=== PATIENT | male | born 1975 | race African-American/Black ===

== ENCOUNTER 2018-02-03 19:33 | Inpatient (IN) | payer OTHER ==
[~2018-02-03] VITALS: Ht 180.3 cm; Wt 91.4 kg
[2018-02-03] MEDS ORDERED: SODIUM CHLORIDE 0.9% 1000ML 1,000 ML IV STA (19:47)
[2018-02-03 20:09] LABS: BASO % 0.7 %; BASO ABS # 0.05 K/uL (0-0.2); EOS % 1.2 %; EOS ABS # 0.08 K/uL (0-0.5); HEMATOCRIT 42.9 % (42-52); HEMOGLOBIN 15.1 g/dL (14.0-18.0); IG# 0.02 K/uL (0.00-0.02); LYMPH % 45.3 %; LYMPH ABS # 3.03 K/uL (1.2-3.4); MEAN CELL VOLUME 90.5 fL (80-100); MEAN CORPUSCULAR HEMOGLOBIN 31.9 pg (25-34); MEAN CORPUSCULAR HGB CONC 35.2 g/dl (32-36); MEAN PLATELET VOLUME 10.2 fL (7.4-10.4); MONO % 9.1 %; MONO ABS # 0.61 K/uL (0.11-0.59); NEUT % 43.4 %; PLATELET COUNT 270 K/uL (130-400); RED CELL DISTRIBUTION WIDTH CV 12.9 % (11.5-14.5); RED CELL DISTRIBUTION WIDTH SD 42.8 fL (36.4-46.3); WHITE BLOOD COUNT 6.69 K/uL (4.8-10.8)
[2018-02-03] MEDS ORDERED: PANTOprazole INJ 80 MG in DEXTROSE 5% 100ML IV ONE (20:15)
[2018-02-03 20:22] LABS: PTT PATIENT 28.9 SECONDS (21.0-31.0)
[2018-02-03 20:28] LABS: ALBUMIN 3.8 gm/dl (3.4-5.0); CALCIUM 8.7 mg/dl (8.5-10.1); CREATININE 1.08 mg/dl (0.60-1.40); POTASSIUM 3.5 mmol/L (3.5-5.1); TOTAL PROTEIN 7.8 gm/dl (6.4-8.2)
[2018-02-03] MEDS ORDERED: PANTOprazole INJ 40 MG in DEXTROSE 5% 100ML IV SCH (20:30)
--- NOTE | 2018-02-03 20:33 | DIAGNOSTIC IMAGING REPORT ---
CHEST ONE VIEW PORTABLE CLINICAL HISTORY: cp dyspnea COMPARISON STUDY: No previous studies for comparison. FINDINGS: The bones soft tissues and hemidiaphragms are normal. The cardiomediastinal silhouette is normal. The lungs are clear. The pulmonary vasculature is normal. IMPRESSION: Negative chest. The above report was generated using voice recognition software. It may contain grammatical, syntax or spelling errors. Electronically signed by: Lucio Brito M.D. 02/03/2018 8:31 PM Dictated Date/Time: 02/03/2018 8:31 PM
[2018-02-03] MEDS ORDERED: BUPR75TA20 PO (20:54)
[2018-02-03] MEDS ORDERED: CHOL100010 PO (20:54)
[2018-02-03] MEDS ORDERED: IBUP-103 PO (20:54)
[2018-02-03] MEDS ORDERED: GABAPENTIN 600 MG TAB PO SCH (21:30)
[2018-02-03] MEDS ORDERED: ONDANSETRON INJ 2 MG/ML 2 ML VIAL IV PRN (21:30)
[2018-02-03] MEDS ORDERED: LORAZEPAM 2 MG/ML 1 ML VIAL IV PRN (21:30)
[2018-02-03] MEDS ORDERED: ACETAMINOPHEN 325 MG TAB PO PRN (21:30)
--- NOTE | 2018-02-03 21:40 | EMERGENCY ROOM VISIT NOTE ---
History Report prepared by Emil: Cici Anglin Under the Supervision of: Rohini WeinsteinO. First contact with patient: 19:46 Chief Complaint: GI ASSESSMENT Stated Complaint: VOMITING BLOOD, BLOOD IN STOOL, ALCOHOLIC History of Present Illness The patient is a 42 year old male who presents to the Emergency Room with a GI assessment today. The patient states that he had blood in his stool today and that he has been vomiting up blood. He reports that there was blood in his stool earlier today and that the blood was bright red. He states that right after this bowel movement he vomited and states that there was speckled blood in that. He denies having any abdominal pain. The patient states that he drinks half of a fifth or a fifth of alcohol per day and reports that he has been doing this for 20 years. He states that he drank today. The patient denies having these symptoms in the past before. He denies a history of esophageal varices. The patient denies being on any blood thinners. Source of History: patient Onset: today Position: abdomen Quality: other (GI assessment) Associated Symptoms: + vomiting (with blood), No abdominal pain Note: additional symptom: blood in stool Review of Systems See HPI for pertinent positives & negatives. A total of 10 systems reviewed and were otherwise negative. Past Medical & Surgical Medical Problems: (1) GI bleed Social History Problems: (1) Alcohol abuse Family History Patient reports no known family medical history. Social History Smoking Status: Current Every Day Smoker Alcohol Use: heavy Current/Historical Medications Scheduled Bupropion (Wellbutrin), 1 TAB PO DAILY Cholecalciferol (Vitamin D), 1 TAB PO 2XWK Scheduled PRN Ibuprofen Tab (Advil), 600 MG PO Q6H PRN for Headache or Pain Allergies Coded Allergies: Penicillins (Verified Allergy, Severe, HIVES, 02/03/18) Physical Exam Vital Signs Date Time Temp Pulse Resp B/P (MAP) Pulse Ox O2 Delivery O2 Flow Rate FiO2 02/03/18 20:45 67 02/03/18 20:20 74 18 147/104 97 Room Air 02/03/18 19:58 98 Room Air 02/03/18 19:42 36.7 93 18 153/104 96 Room Air Physical Exam GENERAL: Sitting up in bed, disheveled, smell of alcohol on breath, appears intoxicated EYE EXAM: injected sclera OROPHARYNX: no exudate, no erythema, lips, buccal mucosa, and tongue normal and mucous membranes are moist NECK: supple, no nuchal rigidity, no adenopathy, non-tender LUNGS: Clear to auscultation. Normal chest wall mechanics HEART: tachycardic, no murmurs, S1 normal and S2 normal ABDOMEN: abdomen soft, non-tender, normo-active bowel sounds, no masses, no rebound or guarding. BACK: Back is symmetrical on inspection and there is no deformity, no midline tenderness, no CVA tenderness. RECTAL: Faintly heme positive SKIN: no rashes and no bruising UPPER EXTREMITIES: upper extremities are grossly normal. LOWER EXTREMITIES: No pitting edema. NEURO EXAM: Normal sensorium, cranial nerves II-XII grossly intact, normal speech, no gross weakness of arms, no gross weakness of legs. Medical Decision & Procedures ER Provider Diagnostic Interpretation: Radiology results as stated below per my review and the radiologist's interpretation: CHEST ONE VIEW PORTABLE CLINICAL HISTORY: cp dyspnea COMPARISON STUDY: No previous studies for comparison. FINDINGS: The bones soft tissues and hemidiaphragms are normal. The cardiomediastinal silhouette is normal. The lungs are clear. The pulmonary vasculature is normal. IMPRESSION: Negative chest. The above report was generated using voice recognition software. It may contain grammatical, syntax or spelling errors. Electronically signed by: Lucio Brito M.D. 02/03/2018 8:31 PM Dictated Date/Time: 02/03/2018 8:31 PM Laboratory Results 02/03/18 19:53 Red Blood Count 4.74, Mean Corpuscular Volume 90.5, Mean Corpuscular Hemoglobin 31.9, Mean Corpuscular Hemoglobin Concent 35.2, Mean Platelet Volume 10.2, Neutrophils (%) (Auto) 43.4, Lymphocytes (%) (Auto) 45.3, Monocytes (%) (Auto) 9.1, Eosinophils (%) (Auto) 1.2, Basophils (%) (Auto) 0.7, Neutrophils # (Auto) 2.90, Lymphocytes # (Auto) 3.03, Monocytes # (Auto) 0.61, Eosinophils # (Auto) 0.08, Basophils # (Auto) 0.05 02/03/18 19:53 Test 02/03/18 19:53 02/03/18 20:01 02/03/18 20:20 White Blood Count 6.69 K/uL (4.8-10.8) Red Blood Count 4.74 M/uL (4.7-6.1) Hemoglobin 15.1 g/dL (14.0-18.0) Hematocrit 42.9 % (42-52) Mean Corpuscular Volume 90.5 fL (80-100) Mean Corpuscular Hemoglobin 31.9 pg (25-34) Mean Corpuscular Hemoglobin Concent 35.2 g/dl (32-36) Platelet Count 270 K/uL (130-400) Mean Platelet Volume 10.2 fL (7.4-10.4) Neutrophils (%) (Auto) 43.4 % Lymphocytes (%) (Auto) 45.3 % Monocytes (%) (Auto) 9.1 % Eosinophils (%) (Auto) 1.2 % Basophils (%) (Auto) 0.7 % Neutrophils # (Auto) 2.90 K/uL (1.4-6.5) Lymphocytes # (Auto) 3.03 K/uL (1.2-3.4) Monocytes # (Auto) 0.61 K/uL (0.11-0.59) Eosinophils # (Auto) 0.08 K/uL (0-0.5) Basophils # (Auto) 0.05 K/uL (0-0.2) RDW Standard Deviation 42.8 fL (36.4-46.3) RDW Coefficient of Variation 12.9 % (11.5-14.5) Immature Granulocyte % (Auto) 0.3 % Immature Granulocyte # (Auto) 0.02 K/uL (0.00-0.02) Prothrombin Time 10.0 SECONDS (9.0-12.0) Prothromb Time International Ratio 1.0 (0.9-1.1) Activated Partial Thromboplast Time 28.9 SECONDS (21.0-31.0) Partial Thromboplastin Ratio 1.1 Anion Gap 8.0 mmol/L (3-11) Est Creatinine Clear Calc Drug Dose 102.0 ml/min Estimated GFR () 96.9 Estimated GFR (Non- 83.6 BUN/Creatinine Ratio 10.1 (10-20) Calcium Level 8.7 mg/dl (8.5-10.1) Total Bilirubin 0.4 mg/dl (0.2-1) Direct Bilirubin 0.1 mg/dl (0-0.2) Aspartate Amino Transf (AST/SGOT) 31 U/L (15-37) Alanine Aminotransferase (ALT/SGPT) 53 U/L (12-78) Alkaline Phosphatase 64 U/L (45-117) Total Protein 7.8 gm/dl (6.4-8.2) Albumin 3.8 gm/dl (3.4-5.0) Lipase 122 U/L (73-393) Ethyl Alcohol mg/dL 187.3 mg/dl (0-3) Urine Color YELLOW Urine Appearance CLEAR (CLEAR) Urine pH 5.5 (4.5-7.5) Urine Specific [place] 1.010 (1.000-1.030) Urine Protein 1+ (NEG) Urine Glucose (UA) NEG (NEG) Urine Ketones NEG (NEG) Urine Occult Blood 1+ (NEG) Urine Nitrite NEG (NEG) Urine Bilirubin NEG (NEG) Urine Urobilinogen NEG (NEG) Urine Leukocyte Esterase NEG (NEG) Urine WBC (Auto) 1-5 /hpf (0-5) Urine RBC (Auto) 0-4 /hpf (0-4) Urine Hyaline Casts (Auto) 0 /lpf (0-5) Urine Epithelial Cells (Auto) 5-10 /lpf (0-5) Urine Bacteria (Auto) NEG (NEG) Laboratory results per my review. Medications Administered Medications (Trade) Dose Ordered Sig/Herbert Route Start Time Stop Time Status Last Admin Dose Admin Sodium Chloride 1,000 ml @ 999 mls/hr Q1H1M STAT IV 02/03/18 19:47 02/03/18 20:47 DC 02/03/18 19:47 999 MLS/HR Pantoprazole Sodium 80 mg/ Dextrose 120 ml @ 480 mls/hr ONE ONCE IV 02/03/18 20:15 02/03/18 20:29 DC 02/03/18 20:15 480 MLS/HR Pantoprazole Sodium 40 mg/ Dextrose 100 ml @ 20 mls/hr Q5H IV 02/03/18 20:30 02/04/18 01:29 02/03/18 20:30 20 MLS/HR ECG Per My Interpretation Indication: other (GI bleed) Rate (beats per minute): 77 Rhythm: sinus rhythm Findings: no ectopy, other (normal axis) ED Course ED COURSE: Vital signs were reviewed and showed hypertension. The patients medical record was reviewed The above diagnostic studies were performed and reviewed. ED treatments and interventions as stated above. 1947: Ordered Sodium Chloride 1000 ml @ 999 mls/hr IV. 1949: The patient was evaluated in room C2B. A complete history and physical examination was performed. 2014: Ordered Pantoprazole Sodium 80 mg/Dextrose 120 ml @ 480 mls/hr IV. 2029: Ordered Pantoprazole Sodium 40 mg/Dextrose 100 ml @ 20 mls/hr IV. 2033: Upon reevaluation, the patient is resting. I discussed the findings and the treatment plan with the patient. He expresses agreement and understanding. I spoke with Dr. Gracia of the [facility] Hospitalist Service. He will be evaluated for further management. Medical Decision Differential diagnosis: Etiologies such as diverticulosis, AVM, coagulopathy, colitis, inflammatory bowel disease, malignancy, Silvana-Carranza tear, esophagitis, peptic ulcer disease , variceal bleed, gastritis, epistaxis, fissure, hemorrhoids, as well as others were entertained. Patient is a 42-year-old male who presents the ER for blood in stool and vomiting up blood specks. Patient admits that he is an alcoholic. He drinks 1/ 5 of alcohol per day for the past 20 years. CBC along with BMP, INR and UA was unremarkable. Alcohol was 190. Hemoglobin was stable. Vitals were stable. He has no pain. Chest x-ray was unremarkable. Rectally he was faintly heme positive although no stool. I was concerned with his excessive constant alcohol abuse that he could have varices and consequently placed him on Protonix drip and given him a bolus. Did discuss case with the hospitalist. He was typed and screened. I did not discuss with GI as he had no additional episodes while in the ER and his vitals remained stable. Patient was updated bedside and admitted to internal medicine. Medication Reconcilliation Current Medication List: was personally reviewed by me Blood Pressure Screening Patient's blood pressure: Elevated blood pressure Blood pressure disposition: Elevated BP felt to be situational Consults Time Called: 2024 Consulting Physician: Dr. Gracia-[facility] Returned Call: 2033 I reviewed the patient's case with Dr. Gracia. He will evaluate the patient for further management. Impression Primary Impression: GI bleed Scribe Attestation The scribe's documentation has been prepared under my direction and personally reviewed by me in its entirety. I confirm that the note above accurately reflects all work, treatment, procedures, and medical decision making performed by me. Departure Information Dispostion Being Evaluated By Hospitalist Referrals No Doctor, Assigned (PCP) Patient Instructions My [facility] Problem Qualifiers Primary Impression: GI bleed GI bleed type/associated pathology: unspecified gastrointestinal hemorrhage type Qualified Codes: K92.2 - Gastrointestinal hemorrhage, unspecified
[2018-02-03] MEDS ORDERED: METOPROLOL TARTRATE 1 MG/ML VIAL IV PRN (21:45)
--- NOTE | 2018-02-03 21:59 | History and Physical ---
History & Physical Date & Time of Service: Feb 03, 2018 at 21:41 Chief Complaint: Vomiting Blood, Blood In Stool, Alcoholic Primary Care Physician: No Doctor, Assigned History of Present Illness Source: patient, hospital records Pt is 42 y/o male with PMH HTN, alcohol abuse, tobacco abuse presented to ER with complaint of bloody stool. Patient states today was having bowel movement and he noticed bright red blood in stool, and toilet water, and on toilet paper. No further rectal bleeding. Patient states after BM had onset of nausea and vomited once and noted red flecks of blood in vomit. No further nausea or vomiting. Patient denies any abdominal pain. Denies any abdominal distention. Denies constipation or diarrhea. Denies history of GI bleed in past. Patient states drinks 750 mL vodka daily. States wakes up in the morning drinks, goes to work during the day and then come home and resumes drinking. At end of workday states gets shaky and feels anxious. Patient denies history of alcohol withdrawal seizures or DTs. Patient reports history rehab couple of years ago and then resumed drinking again. Patient states has been drinking for years. He reports history and past being told had elevated liver functions , denies any known cirrhosis. Patient takes 3 pills Advil twice a week and sometimes uses aspirin 325 mg once a week. Drinks 2 cups caffeine a week. Patient states has daily indigestion, sometimes uses Tums with limited relief. Denies recent antibiotic use. Denies history EGD or colonoscopy in past. Smokes 0.75 PPD day 10 years. Tried bupropion for smoking cessation and patient states is currently prescribed however does not take as he did not feel it helped. Patient states some depression/sadness symptoms, denies suicidal or homicidal ideation. Patient states not on antihypertensive medicine and has been diet controlled. Patient reports consumes 3-4 cups fluids in addition to alcohol a day. Reports limited appetite and eating. Denies fever/chills, diaphoresis, MITTAL, dizziness, syncope, vision changes, neck pain, CP, SOB, orthopnea, palpitations, cough, sore throat, choking, otalgia, rhinorrhea, paresthesias, weakness, extremity weakness, extremity edema, rashes, urinary symptoms, weight loss. Past Medical/Surgical History Medical Problems: (1) HTN (hypertension) Status: Chronic (2) Tobacco abuse Status: Chronic Surgical Problems: (1) History of appendectomy Status: Resolved Social History Problems: (1) Alcohol abuse Status: Chronic Family History Diabetes mellitus FH: CAD (coronary artery disease) Social History Smoking Status: Current Every Day Smoker (0.75 ppd x 10 years) Smokeless Tobacco Use: No Alcohol Use: 750 mL of vodka a day Drug Use: none Occupational Status: employed Allergies Coded Allergies: Penicillins (Verified Allergy, Severe, HIVES, 02/03/18) Home Medications Scheduled Bupropion (Wellbutrin), 1 TAB PO DAILY Scheduled PRN Ibuprofen Tab (Advil), 600 MG PO Q6H PRN for Headache or Pain Review of Systems See HPI for pertinent positives & negatives. All other systems reviewed and were otherwise negative Physical Exam Vital Signs Date Time Temp Pulse Resp B/P (MAP) Pulse Ox O2 Delivery O2 Flow Rate FiO2 02/03/18 20:45 67 02/03/18 20:20 74 18 147/104 97 Room Air 02/03/18 19:58 98 Room Air 02/03/18 19:42 36.7 93 18 153/104 96 Room Air General Appearance: WD/WN, no apparent distress Head: normocephalic, atraumatic Eyes: normal inspection, sclerae normal, + pertinent finding (+ lateral nystagmus) ENT: hearing grossly normal, pharynx normal, + pertinent finding (+ EtOH odor on breath, mucous membranes slightly dry) Neck: supple, trachea midline Respiratory/Chest: lungs clear, normal breath sounds, no respiratory distress Cardiovascular: regular rate, rhythm, no murmur Abdomen/GI: normal bowel sounds, non tender, soft Extremities/Musculoskelatal: normal capillary refill, no pedal edema, normal range of motion Neurologic/Psych: alert, normal mood/affect, oriented x 3 Skin: warm/dry Diagnostics Laboratory Results Results Past 24 Hours Test 02/03/18 19:53 02/03/18 20:01 02/03/18 20:20 02/03/18 21:36 Range/Units White Blood Count 6.69 4.8-10.8 K/uL Red Blood Count 4.74 4.7-6.1 M/uL Hemoglobin 15.1 14.0-18.0 g/dL Hematocrit 42.9 42-52 % Mean Corpuscular Volume 90.5 80-100 fL Mean Corpuscular Hemoglobin 31.9 25-34 pg Mean Corpuscular Hemoglobin Concent 35.2 32-36 g/dl Platelet Count 270 130-400 K/uL Mean Platelet Volume 10.2 7.4-10.4 fL Neutrophils (%) (Auto) 43.4 % Lymphocytes (%) (Auto) 45.3 % Monocytes (%) (Auto) 9.1 % Eosinophils (%) (Auto) 1.2 % Basophils (%) (Auto) 0.7 % Neutrophils # (Auto) 2.90 1.4-6.5 K/uL Lymphocytes # (Auto) 3.03 1.2-3.4 K/uL Monocytes # (Auto) 0.61 0.11-0.59 K/uL Eosinophils # (Auto) 0.08 0-0.5 K/uL Basophils # (Auto) 0.05 0-0.2 K/uL RDW Standard Deviation 42.8 36.4-46.3 fL RDW Coefficient of Variation 12.9 11.5-14.5 % Immature Granulocyte % (Auto) 0.3 % Immature Granulocyte # (Auto) 0.02 0.00-0.02 K/uL Prothrombin Time 10.0 9.0-12.0 SECONDS Prothromb Time International Ratio 1.0 0.9-1.1 Activated Partial Thromboplast Time 28.9 21.0-31.0 SECONDS Partial Thromboplastin Ratio 1.1 Sodium Level 140 136-145 mmol/L Potassium Level 3.5 3.5-5.1 mmol/L Chloride Level 107 98-107 mmol/L Carbon Dioxide Level 25 21-32 mmol/L Anion Gap 8.0 3-11 mmol/L Blood Urea Nitrogen 11 7-18 mg/dl Creatinine 1.08 0.60-1.40 mg/dl Est Creatinine Clear Calc Drug Dose 102.0 ml/min Estimated GFR () 96.9 Estimated GFR (Non- 83.6 BUN/Creatinine Ratio 10.1 10-20 Random Glucose 94 70-99 mg/dl Calcium Level 8.7 8.5-10.1 mg/dl Total Bilirubin 0.4 0.2-1 mg/dl Direct Bilirubin 0.1 0-0.2 mg/dl Aspartate Amino Transf (AST/SGOT) 31 15-37 U/L Alanine Aminotransferase (ALT/SGPT) 53 12-78 U/L Alkaline Phosphatase 64 45-117 U/L Total Protein 7.8 6.4-8.2 gm/dl Albumin 3.8 3.4-5.0 gm/dl Lipase 122 73-393 U/L Ethyl Alcohol mg/dL 187.3 0-3 mg/dl Urine Color YELLOW Urine Appearance CLEAR CLEAR Urine pH 5.5 4.5-7.5 Urine Specific [place] 1.010 1.000-1.030 Urine Protein 1+ NEG Urine Glucose (UA) NEG NEG Urine Ketones NEG NEG Urine Occult Blood 1+ NEG Urine Nitrite NEG NEG Urine Bilirubin NEG NEG Urine Urobilinogen NEG NEG Urine Leukocyte Esterase NEG NEG Urine WBC (Auto) 1-5 0-5 /hpf Urine RBC (Auto) 0-4 0-4 /hpf Urine Hyaline Casts (Auto) 0 0-5 /lpf Urine Epithelial Cells (Auto) 5-10 0-5 /lpf Urine Bacteria (Auto) NEG NEG Diagnostic Radiology CXR: IMPRESSION: Negative chest. Impression Assessment and Plan Pt is 42 y/o male with PMH HTN, alcohol abuse, tobacco abuse presented to ER with complaint of bloody stool. Patient states today was having bowel movement and he noticed bright red blood in stool, and toilet water, and on toilet paper. No further rectal bleeding. Patient states after BM had onset of nausea and vomited once and noted red flecks of blood in vomit. No further nausea or vomiting. GI BLEED In ER P: [id number], R: 18, BP 153/104, 96% on room air, afebrile. No leukocytosis. Hgb: 15, normal renal functions, normal LFTs, normal PT-INR. Denies dizziness , syncope, CP, SOB, abdominal pain. Patient reported heme positive stool. Patient was given 1 L NSS, started on Protonix drip -IVF -Protonix drip -Pending magnesium and phosphorus -Type and cross, hold -Repeat H&H -CBC, liver profile electrolytes, magnesium, phosphorus in a.m. -GI consult -spoke with him to call recommends continuing Protonix drip, n.p.o. for now ALCOHOL ABUSE EtOH: 187 in ER -Banana bag -Alcohol withdrawal protocol -Seizure precautions HTN BP: 153/104 -Lopressor as needed HTN TOBACCO ABUSE -Smoking cessation discussed. Patient has tried Wellbutrin in past with the results. He is currently prescribed however does not take. -Nicotine patch DVT Prophylaxis -SCDs Admit tele Full code Follows with [facility] for routine care Pt was seen with Dr Pierce. See addendum Agree with above h and p. Briefly 42m with hx of alcohol abuse and tobacco abuse presents with one episode of blood in stool and bloody vomiting. No more episodes since then . drinks 750ml of vodka every day for last 10yrs. Currently hemodynamically stable. 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
[2018-02-03 22:15] VITALS: BP 126/84; PULSE 76; TEMP 36.7; O2SAT 100; Ht 180.3 cm; Wt 91.4 kg
[2018-02-03 22:22] LABS: PHOSPHORUS 3.1 mg/dl (2.5-4.9)
[2018-02-03] MEDS ORDERED: MULTI-VITAMIN INFUSION INJ 10 ML, THIAMINE HCL INJ 100 MG, FoLIC ACID INJ 1 MG in SODIU... IV ONE (23:00)
[2018-02-03] MEDS ORDERED: GABAPENTIN 1200MG LOADING DOSE PO ONE (23:00)
[2018-02-03] MEDS ORDERED: NICOTINE 21 MG/24 HR TDSY TD SCH (23:00)
--- NOTE | 2018-02-03 23:02 | Progress Note ---
Internal Med Progress Note Date of Service: Feb 03, 2018. Provider Documentation: patient signed out AMA, Explained risk of more bleeding and even . patient says he is feeling fine and wants to leave the hospital and was ok to sign AMA. ASSESSMENT & PLAN: [] DVT PROPHYLAXIS [] DISPOSITION [] Vital Signs: Date Time Temp Pulse Resp B/P (MAP) Pulse Ox O2 Delivery O2 Flow Rate FiO2 02/03/18 22:15 36.7 76 18 126/84 (98) 100 Room Air 02/03/18 22:15 36.7 76 18 126/84 100 Room Air 02/03/18 21:47 65 18 137/99 98 Room Air 02/03/18 20:45 67 02/03/18 20:20 74 18 147/104 97 Room Air 02/03/18 19:58 98 Room Air 02/03/18 19:42 36.7 93 18 153/104 96 Room Air Lab Results: Results Past 24 Hours Test 02/03/18 19:53 02/03/18 20:01 02/03/18 20:20 02/03/18 23:00 Range/Units White Blood Count 6.69 4.8-10.8 K/uL Red Blood Count 4.74 4.7-6.1 M/uL Hemoglobin 15.1 14.0-18.0 g/dL Hematocrit 42.9 42-52 % Mean Corpuscular Volume 90.5 80-100 fL Mean Corpuscular Hemoglobin 31.9 25-34 pg Mean Corpuscular Hemoglobin Concent 35.2 32-36 g/dl Platelet Count 270 130-400 K/uL Mean Platelet Volume 10.2 7.4-10.4 fL Neutrophils (%) (Auto) 43.4 % Lymphocytes (%) (Auto) 45.3 % Monocytes (%) (Auto) 9.1 % Eosinophils (%) (Auto) 1.2 % Basophils (%) (Auto) 0.7 % Neutrophils # (Auto) 2.90 1.4-6.5 K/uL Lymphocytes # (Auto) 3.03 1.2-3.4 K/uL Monocytes # (Auto) 0.61 0.11-0.59 K/uL Eosinophils # (Auto) 0.08 0-0.5 K/uL Basophils # (Auto) 0.05 0-0.2 K/uL RDW Standard Deviation 42.8 36.4-46.3 fL RDW Coefficient of Variation 12.9 11.5-14.5 % Immature Granulocyte % (Auto) 0.3 % Immature Granulocyte # (Auto) 0.02 0.00-0.02 K/uL Prothrombin Time 10.0 9.0-12.0 SECONDS Prothromb Time International Ratio 1.0 0.9-1.1 Activated Partial Thromboplast Time 28.9 21.0-31.0 SECONDS Partial Thromboplastin Ratio 1.1 Sodium Level 140 136-145 mmol/L Potassium Level 3.5 3.5-5.1 mmol/L Chloride Level 107 98-107 mmol/L Carbon Dioxide Level 25 21-32 mmol/L Anion Gap 8.0 3-11 mmol/L Blood Urea Nitrogen 11 7-18 mg/dl Creatinine 1.08 0.60-1.40 mg/dl Est Creatinine Clear Calc Drug Dose 102.0 ml/min Estimated GFR () 96.9 Estimated GFR (Non- 83.6 BUN/Creatinine Ratio 10.1 10-20 Random Glucose 94 70-99 mg/dl Calcium Level 8.7 8.5-10.1 mg/dl Phosphorus Level 3.1 2.5-4.9 mg/dl Magnesium Level 2.1 1.8-2.4 mg/dl Total Bilirubin 0.4 0.2-1 mg/dl Direct Bilirubin 0.1 0-0.2 mg/dl Aspartate Amino Transf (AST/SGOT) 31 15-37 U/L Alanine Aminotransferase (ALT/SGPT) 53 12-78 U/L Alkaline Phosphatase 64 45-117 U/L Total Protein 7.8 6.4-8.2 gm/dl Albumin 3.8 3.4-5.0 gm/dl Lipase 122 73-393 U/L Ethyl Alcohol mg/dL 187.3 0-3 mg/dl Urine Color YELLOW Urine Appearance CLEAR CLEAR Urine pH 5.5 4.5-7.5 Urine Specific [place] 1.010 1.000-1.030 Urine Protein 1+ NEG Urine Glucose (UA) NEG NEG Urine Ketones NEG NEG Urine Occult Blood 1+ NEG Urine Nitrite NEG NEG Urine Bilirubin NEG NEG Urine Urobilinogen NEG NEG Urine Leukocyte Esterase NEG NEG Urine WBC (Auto) 1-5 0-5 /hpf Urine RBC (Auto) 0-4 0-4 /hpf Urine Hyaline Casts (Auto) 0 0-5 /lpf Urine Epithelial Cells (Auto) 5-10 0-5 /lpf Urine Bacteria (Auto) NEG NEG
--- NOTE | 2018-02-03 23:05 | Discharge Summary ---
Discharge Summary Date of Service Feb 03, 2018. Discharge Summary Admission Date: Feb 03, 2018 at 21:24 Discharge Disposition: Home (signed out AMA) Principal Diagnosis: gi bleed Secondary Diagnoses/Problems: ALCOHOLISM Procedures: CXR;Negative chest. Admission Information HPI (per Admitting provider): Pt is 42 y/o male with PMH HTN, alcohol abuse, tobacco abuse presented to ER with complaint of bloody stool. Patient states today was having bowel movement and he noticed bright red blood in stool, and toilet water, and on toilet paper. No further rectal bleeding. Patient states after BM had onset of nausea and vomited once and noted red flecks of blood in vomit. No further nausea or vomiting. Patient denies any abdominal pain. Denies any abdominal distention. Denies constipation or diarrhea. Denies history of GI bleed in past. Patient states drinks 750 mL vodka daily. States wakes up in the morning drinks, goes to work during the day and then come home and resumes drinking. At end of workday states gets shaky and feels anxious. Patient denies history of alcohol withdrawal seizures or DTs. Patient reports history rehab couple of years ago and then resumed drinking again. Patient states has been drinking for years. He reports history and past being told had elevated liver functions , denies any known cirrhosis. Patient takes 3 pills Advil twice a week and sometimes uses aspirin 325 mg once a week. Drinks 2 cups caffeine a week. Patient states has daily indigestion, sometimes uses Tums with limited relief. Denies recent antibiotic use. Denies history EGD or colonoscopy in past. Smokes 0.75 PPD day 10 years. Tried bupropion for smoking cessation and patient states is currently prescribed however does not take as he did not feel it helped. Patient states some depression/sadness symptoms, denies suicidal or homicidal ideation. Patient states not on antihypertensive medicine and has been diet controlled. Patient reports consumes 3-4 cups fluids in addition to alcohol a day. Reports limited appetite and eating. Denies fever/chills, diaphoresis, MITTAL, dizziness, syncope, vision changes, neck pain, CP, SOB, orthopnea, palpitations, cough, sore throat, choking, otalgia, rhinorrhea, paresthesias, weakness, extremity weakness, extremity edema, rashes, urinary symptoms, weight loss. Physical Exam (per Admitting): General Appearance: WD/WN, no apparent distress Head: normocephalic, atraumatic Eyes: normal inspection, sclerae normal, + pertinent finding (+ lateral nystagmus) ENT: hearing grossly normal, pharynx normal, + pertinent finding (+ EtOH odor on breath, mucous membranes slightly dry) Neck: supple, trachea midline Respiratory/Chest: lungs clear, normal breath sounds, no respiratory distress Cardiovascular: regular rate, rhythm, no murmur Abdomen/GI: normal bowel sounds, non tender, soft Extremities/Musculoskelatal: normal capillary refill, no pedal edema, normal range of motion Neurologic/Psych: alert, normal mood/affect, oriented x 3 Skin: warm/dry Hospital Course PATIENT SIGNED OUT AMA SAME DAY OF ADMISSION. Assessment and Plan ON ADMISSION. Pt is 42 y/o male with PMH HTN, alcohol abuse, tobacco abuse presented to ER with complaint of bloody stool. Patient states today was having bowel movement and he noticed bright red blood in stool, and toilet water, and on toilet paper. No further rectal bleeding. Patient states after BM had onset of nausea and vomited once and noted red flecks of blood in vomit. No further nausea or vomiting. GI BLEED In ER P: [id number], R: 18, BP 153/104, 96% on room air, afebrile. No leukocytosis. Hgb: 15, normal renal functions, normal LFTs, normal PT-INR. Denies dizziness , syncope, CP, SOB, abdominal pain. Patient reported heme positive stool. Patient was given 1 L NSS, started on Protonix drip -IVF -Protonix drip -Pending magnesium and phosphorus -Type and cross, hold -Repeat H&H -CBC, liver profile electrolytes, magnesium, phosphorus in a.m. -GI consult -spoke with him to call recommends continuing Protonix drip, n.p.o. for now ALCOHOL ABUSE EtOH: 187 in ER -Banana bag -Alcohol withdrawal protocol -Seizure precautions HTN BP: 153/104 -Lopressor as needed HTN TOBACCO ABUSE -Smoking cessation discussed. Patient has tried Wellbutrin in past with the results. He is currently prescribed however does not take. -Nicotine patch DVT Prophylaxis -SCDs Admit tele Full code Follows with [facility] for routine care DVT PROPHYLAXIS [] DISPOSITION [] Total time spent on discharge = This includes examination of the patient, discharge planning, medication reconciliation, and communication with other providers. Discharge Instructions SIGNED OUT AMA
[2018-02-04] MEDS ORDERED: SODIUM CHLORIDE 0.9% 1000ML 1,000 ML IV SCH (01:00)
[2018-02-04] MEDS ORDERED: PANTOprazole INJ 40 MG in DEXTROSE 5% 100ML IV SCH (01:00)
[2018-02-04] MEDS ORDERED: GABAPENTIN 600MG Q6H DOSE PO SCH (06:00)
[2018-02-04] MEDS ORDERED: GABAPENTIN 600MG Q8H DOSE PO SCH (22:00)
[2018-02-05] MEDS ORDERED: GABAPENTIN 600MG Q12H DOSE PO SCH (06:00)
[2018-02-06] MEDS ORDERED: GABAPENTIN 600MG X1 DOSE PO SCH (18:00)
== END 2018-02-03 23:10 | disposition left against medical advice (07) | DRG 379 ==
LOC: C.EDB 19:35 → C.2T 21:24 → ENRESERV 21:44
PROVIDERS: ADMIT Internal Medicine; ATTEND Internal Medicine
DX: K92.0 Hematemesis (principal); K92.1 Melena; F10.20 Alcohol dependence, uncomplicated; F17.200 Nicotine dependence, unspecified, uncomplicated; Z79.899 Other long term (current) drug therapy